=== PATIENT | male | born 1965 | race Caucasian/White ===

== ENCOUNTER 2017-06-22 16:00 | Day surgery (SDC) | payer MEDICARE, OTHER ==
[2017-06-22] MEDS ORDERED: LIDOCAINE 1% (MPF) 30 ML INJ (17:57)
[2017-06-22] MEDS ORDERED: DEXAMETHASONE 4 MG/ML 1 ML INJ (17:58)
[2017-06-22] MEDS ORDERED: POLYMYXIN/BACITRACIN 1L IRRIG (17:58)
[2017-06-22] MEDS ORDERED: MIDAZOLAM 1 MG/ML 2 ML INJ (18:24)
[2017-06-22] MEDS ORDERED: FENTAnyl 50 MCG/ML VIAL (18:24)
[2017-06-22] MEDS ORDERED: ROPIVACAINE 0.5 % 30 ML VIAL (18:26)
[2017-06-22] MEDS ORDERED: PROPOFOL 20 ML (19:01)
[2017-06-22] MEDS ORDERED: CEFAZOLIN 1 GM INJ (19:01)
[2017-06-22] MEDS ORDERED: SUGAMMADEX SODIUM 200 MG/2 ML VIAL IV (19:01)
[2017-06-22] MEDS ORDERED: ROCURONIUM 50 MG INJ (19:01)
[2017-06-22] MEDS ORDERED: LIDOCAINE 100 MG SYRINGE (19:01)
[2017-06-22] MEDS ORDERED: SUCCINYLCHOLINE CHLORIDE 100 MG/5 ML SYG IV (19:01)
[2017-06-22] MEDS: BUPIVACAINE 0.5% (SDV) 30 ML INJ (19:09)
[2017-06-22] MEDS ORDERED: ONDANSETRON 4 MG INJ IV (19:30)
[2017-06-22] MEDS ORDERED: FENTAnyl 50 MCG/ML VIAL IV ×2 (19:30)
[2017-06-22] MEDS ORDERED: HYDROmorphONE (0.2 MG/ML) 10ML SYG IV ×3 (19:30)
[2017-06-22] MEDS ORDERED: MEPERIDINE 25 MG INJ IV (19:30)
[2017-06-22] MEDS ORDERED: DIPHENHYDRAMINE 50 MG INJ IV (19:30)
[2017-06-22] MEDS ORDERED: METOCLOPRAMIDE 10 MG INJ IV (19:30)
== END 2017-06-22 22:00 | disposition home or self-care (01) ==
LOC: SDS 16:00
DX: S92.351A Displaced fracture of fifth metatarsal bone, right foot, initial encounter for closed fracture (principal); X58.XXXA Exposure to other specified factors, initial encounter; E66.9 Obesity, unspecified; Z68.30 Body mass index [BMI] 30.0-30.9, adult
CPT/HCPCS: 28485